=== PATIENT | male | born 1980 | race Caucasian/White ===

== ENCOUNTER 2018-11-09 20:22 | Observation (INO) | payer MEDICARE, OTHER ==
[2018-11-09] MEDS ORDERED: Morphine 4 MG/ML VIAL ONE ×2 (21:00→23:08)
[2018-11-09] MEDS ORDERED: Ketorolac Tromethamine 30 MG/ML VIAL ONE (21:00)
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
[2018-11-09 21:29] LABS: #Monocytes 0.5 thou/uL (0.11-0.59); #Neutrophils 9.1 thou/uL (1.40-6.50); %Basophils 0.3 % (0.0-1.0); %Eosinophils 0.5 % (0.0-10.0); %Lymphocytes 9.7 % (21.0-51.0); %Monocytes 4.4 % (0.0-10.0); %Neutrophils 85.2 % (42.0-75.0); Hemoglobin 15.8 g/dL (14.0-18.0); Mean Corpuscular HGB CONC 33.2 g/dL (32.0-36.0); Mean Corpuscular Hemoglobin 34.2 pg (27.0-31.0); Mean Platelet Volume 9.4 fL (7.4-10.4); Platelet Count 160 thou/uL (130-400); RBC Distribution Width 12.5 % (11.5-14.5); Red Blood Cell (RBC) Count 4.61 mill/uL (4.70-6.10); White Blood Cell (WBC) Count 10.6 thou/uL (4.8-10.8)
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
[2018-11-09 21:57] LABS: ALT (SGPT) 10 U/L (8-55); AST (SGOT) 16 U/L (5-34); Albumin 4.3 g/dL (3.5-5.0); Alkaline Phosphatase 71 U/L (40-150); Anion Gap 15 mmol/L (10-20); BUN (Urea Nitrogen) 14 mg/dL (8.9-20.6); Bilirubin, Total 0.6 mg/dL (0.2-1.2); Calc. Creatinine Clearance 0 mL/min (70-130); Calcium 9.2 mg/dL (7.8-10.44); Carbon Dioxide 23 mmol/L (22-29); Chloride 104 mmol/L (98-107); Estimated GFR-MDRD 75; Globulin 2.7 g/dL (2.4-3.5); Glucose 130 mg/dL (70-105); Potassium 3.8 mmol/L (3.5-5.1); Sodium 138 mmol/L (136-145)
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
[2018-11-09] MEDS ORDERED: Acetaminophen 1,000 MG in Premix Bag 1 BAG IVPB SCH (23:30)
[2018-11-10] MEDS ORDERED: Nicotine 14 MG PATCH TOP SCH (00:30)
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
[2018-11-10] MEDS ORDERED: Morphine 4 MG/ML VIAL SLOW IVP PRN (01:36)
[2018-11-10] MEDS ORDERED: hydrALAZINE 20 MG/ML VIAL SLOW IVP PRN (01:36)
[2018-11-10] MEDS ORDERED: Dextrose 5% in Water 1,000 ML IV PRN (01:36)
[2018-11-10] MEDS ORDERED: Cyclobenzaprine 10 MG TAB PO PRN (01:36)
[2018-11-10] MEDS ORDERED: Promethazine HCl 25 MG/ML VIAL IM PRN ×3 (01:36→11:07)
[2018-11-10] MEDS ORDERED: Ondansetron PF 4 MG/2 ML Vial IVP PRN (01:36)
[2018-11-10] MEDS ORDERED: Dextrose 50% Abboject 50 ML SYRINGE SLOW IVP PRN (01:36)
[2018-11-10] MEDS ORDERED: Ondansetron ODT 4 MG TAB PO PRN (01:36)
[2018-11-10] MEDS ORDERED: Ketorolac Tromethamine 30 MG/ML VIAL IVP SCH (02:00)
[2018-11-10] MEDS: Sodium Chloride 0.9% 1,000 ML IV SCH ×2 (02:00→09:37)
[2018-11-10 02:47] VITALS: BMI 20.9
[2018-11-10] MEDS: Acetaminophen 1,000 MG in Premix Bag 1 BAG IVPB SCH ×2 (05:32→13:02)
[2018-11-10 05:37] LABS: Anion Gap 13 mmol/L (10-20); BUN (Urea Nitrogen) 17 mg/dL (8.9-20.6); Calc. Creatinine Clearance 113 mL/min (70-130); Calcium 9.3 mg/dL (7.8-10.44); Carbon Dioxide 23 mmol/L (22-29); Chloride 104 mmol/L (98-107); Estimated GFR-MDRD Greater than 90; Glucose 85 mg/dL (70-105); Potassium 4.2 mmol/L (3.5-5.1); Sodium 136 mmol/L (136-145)
[2018-11-10 05:38] LABS: #Eosinphils 0.1 thou/uL (0.0-0.7); #Lymphocytes 2.6 thou/uL (1.20-3.40); #Monocytes 0.9 thou/uL (0.11-0.59); #Neutrophils 7.8 thou/uL (1.40-6.50); %Basophils 0.1 % (0.0-1.0); %Eosinophils 0.9 % (0.0-10.0); %Lymphocytes 22.5 % (21.0-51.0); %Monocytes 7.8 % (0.0-10.0); %Neutrophils 68.7 % (42.0-75.0); Hemoglobin 14.1 g/dL (14.0-18.0); Mean Corpuscular HGB CONC 33.2 g/dL (32.0-36.0); Mean Corpuscular Hemoglobin 32.9 pg (27.0-31.0); Mean Corpuscular Volume 99.1 fL (78.0-98.0); Mean Platelet Volume 9.9 fL (7.4-10.4); Platelet Count 156 thou/uL (130-400); RBC Distribution Width 12.7 % (11.5-14.5); Red Blood Cell (RBC) Count 4.28 mill/uL (4.70-6.10); White Blood Cell (WBC) Count 11.4 thou/uL (4.8-10.8)
[2018-11-10] MEDS ORDERED: Clindamycin/D5W 900 MG in Premix Bag 1 BAG IVPB SCH (07:30)
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
[2018-11-10 08:00] LABS: Magnesium 2.3 mg/dL (1.6-2.6); Phosphorus 4.3 mg/dL (2.3-4.7)
[2018-11-10] MEDS: Ketorolac Tromethamine 30 MG/ML VIAL IVP SCH ×2 (08:17→13:02)
--- NOTE | 2018-11-10 08:18 | RAD ---
RIGHT CLAVICLE 2 VIEWS: HISTORY: Pain. COMPARISON: None. FINDINGS: There is a minimally displaced right distal clavicular fracture lateral to the coracoid process. Vis ualized ribs are intact. IMPRESSION: 1. Minimal displaced distal clavicular fracture. 2. Suture material right upper lobe. 3. Possible os acromiale. POS: CET
[2018-11-10] MEDS ORDERED: Bupivacaine HCl 0.5%/Epinephrine 1:200,000/PF 30 ml Vial ONE (08:37)
[2018-11-10] MEDS ORDERED: Famotidine 20 MG TAB PO SCH (09:00)
[2018-11-10] MEDS ORDERED: Bacitracin Zinc Ointment 30 gm TUBE TOP SCH (09:00)
[2018-11-10] MEDS ORDERED: Fentanyl 250 MCG/5 ML VIAL ONE (09:30)
[2018-11-10] MEDS ORDERED: Clindamycin/D5W 900 mg/50 ml Premix Bag ONE (09:41)
[2018-11-10] MEDS ORDERED: Famotidine/PF 20 mg/2ml Vial ONE (11:04)
[2018-11-10] MEDS ORDERED: Morphine Sulfate 2 MG/ML SYRINGE SLOW IVP PRN (11:07)
[2018-11-10] MEDS ORDERED: Meperidine HCl/PF 25 MG/ML VIAL SLOW IVP PRN (11:07)
[2018-11-10] MEDS ORDERED: Ondansetron HCl/PF 4 MG/2 ML Vial IVP PRN (11:07)
[2018-11-10] MEDS ORDERED: Promethazine HCl 25 MG/ML VIAL SLOW IVP PRN (11:07)
[2018-11-10] MEDS ORDERED: Fentanyl 100 MCG/2 ML VIAL ONE (11:14)
--- NOTE | 2018-11-10 11:29 | RAD ---
LEFT FOREARM TWO VIEWS: History: Fracture of the ulna. FINDINGS/IMPRESSION: Three spot fluoroscopic intraoperative images of the left distal forearm demonstrating reduction and fixation of the distal ulnar fracture with plate and screws since 11-09-18. POS: OFF
[2018-11-10] MEDS ORDERED: Famotidine/PF 20 mg/2ml Vial SLOW IVP ONE (11:30)
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
[2018-11-10] MEDS ORDERED: traMADol HCl 50 MG TAB PO PRN (14:04)
[2018-11-10 14:09] VITALS: BP 127/84; TEMP 97.3
[2018-11-10] MEDS ORDERED: Ibuprofen 800 MG TAB PO SCH ×2 (14:15→22:00)
[2018-11-10] MEDS ORDERED: Dexamethasone 20 MG/5 ML VIAL ONE (14:35)
[2018-11-10] MEDS ORDERED: Lidocaine 1% PF 5 ML VIAL ONE (14:35)
[2018-11-10] MEDS ORDERED: ePHEDrine 50 MG/ML VIAL ONE (14:35)
[2018-11-10] MEDS ORDERED: Ondansetron PF 4 MG/2 ML Vial ONE (14:35)
[2018-11-10] MEDS ORDERED: PROPOFOL 200 MG/20 ML VIAL ONE (14:35)
[2018-11-10] MEDS ORDERED: Succinylcholine Chloride 20 MG/ML 10 ml SYRINGE FS ONE (14:35)
[2018-11-10] MEDS ORDERED: Acetaminophen 500 MG TAB PO SCH (18:00)
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
== END 2018-11-10 16:05 | disposition home or self-care (01) ==
LOC: ERS 20:22 → INTOOBSV 11-10 01:01 → SURG A 11-10 01:01
PROVIDERS: ADMIT Surgery; ATTEND Orthopaedic Surgery
PROC: 0PSL04Z Reposition Left Ulna with Internal Fixation Device, Open Approach (ICD-10-PCS; principal; 2018-11-10)
DX: S52.612A Displaced fracture of left ulna styloid process, initial encounter for closed fracture (principal); S42.034A Nondisplaced fracture of lateral end of right clavicle, initial encounter for closed fracture; S59.002A Unspecified physeal fracture of lower end of ulna, left arm, initial encounter for closed fracture; K21.9 Gastro-esophageal reflux disease without esophagitis; F17.210 Nicotine dependence, cigarettes, uncomplicated; Z88.0 Allergy status to penicillin; Z88.8 Allergy status to other drugs, medicaments and biological substances; Z90.49 Acquired absence of other specified parts of digestive tract; Z98.890 Other specified postprocedural states; Z79.1 Long term (current) use of non-steroidal anti-inflammatories (NSAID); Z79.2 Long term (current) use of antibiotics; V59.9XXA Occupant (driver) (passenger) of pick-up truck or van injured in unspecified traffic accident, initial encounter
CPT/HCPCS: 25530; 25652; 70450; 71045; 72125; 73000; 73060; 73090 ×2; 73110 ×2; 76000; 80048; 80053; 83735; 84100; 85025 ×2; 93005; 96374; 96375 ×2; 96376 ×2; 97139 ×2; 99285; C1713 ×2; G0378; 36415; 36416; J0131; J0670; J1100; J1885; J2001; J2270; J2405; J2550; J2704; J3010; J3490; S0028

== ENCOUNTER 2022-09-27 05:38 | Day surgery (SDC) | payer MEDICARE, OTHER ==
[2022-09-24 12:03] VITALS: BMI 20.9
[2022-09-27] MEDS ORDERED: Midazolam HCl 2 mg/2 ml Vial ONE (07:21)
[2022-09-27] MEDS ORDERED: Fentanyl 100 MCG/2 ML VIAL ONE (07:28)
[2022-09-27] MEDS ORDERED: PROPOFOL 200 MG/20 ML VIAL ONE (07:39)
[2022-09-27] MEDS ORDERED: Lidocaine 1% PF 5 ML VIAL ONE (07:39)
== END 2022-09-27 09:50 | disposition home or self-care (01) ==
LOC: SDC 05:38
PROVIDERS: ATTEND Internal Medicine
PROC: 0DB48ZX Excision of Esophagogastric Junction, Via Natural or Artificial Opening Endoscopic, Diagnostic (ICD-10-PCS; principal; 2022-09-27)
DX: K22.70 Barrett's esophagus without dysplasia (principal); K21.00 Gastro-esophageal reflux disease with esophagitis, without bleeding; K44.9 Diaphragmatic hernia without obstruction or gangrene; M19.90 Unspecified osteoarthritis, unspecified site; F17.210 Nicotine dependence, cigarettes, uncomplicated; Z79.899 Other long term (current) drug therapy; Z88.0 Allergy status to penicillin; Z88.8 Allergy status to other drugs, medicaments and biological substances
CPT/HCPCS: 88305; J2250; J2704; J3010

== ENCOUNTER 2023-11-21 | Outpatient (CLI) | payer OTHER | END 2023-11-21 09:47 | disposition home or self-care (01) | DX: R31.21 Asymptomatic microscopic hematuria (principal); K44.9 Diaphragmatic hernia without obstruction or gangrene; Z98.890 Other specified postprocedural states ==

== ENCOUNTER 2023-11-25 15:26 | Emergency (ER) | payer OTHER | END 2023-11-25 16:40 | disposition home or self-care (01) | LOC: ERS 15:26 | DX: M94.0 Chondrocostal junction syndrome [Tietze] (principal); F17.210 Nicotine dependence, cigarettes, uncomplicated | CPT/HCPCS: 71046; 93005 ==